=== PATIENT | male | born 1970 | race Caucasian/White ===

== ENCOUNTER 2023-04-17 12:29 | Emergency (ER) | payer OTHER ==
[~2023-04-17] VITALS: Ht 177.8 cm; Wt 90.7 kg
[2023-04-17 12:30] VITALS: BP_SYST 123; PULSE 81; RESP 19; TEMP 98.3; O2SAT 99
[2023-04-17] MEDS ORDERED: IBUP-1969 PO (13:13)
[2023-04-17] MEDS ORDERED: TRAM50TA2 PO ×2 (13:13→18:49)
[2023-04-17] MEDS ORDERED: KETOROLAC TROMETHAMINE 60 MG/2 ML VIAL IM ONE (13:15)
[2023-04-17 14:50] VITALS: BP_SYST 123; PULSE 81; RESP 19; TEMP 98.3; O2SAT 99
== END 2023-04-17 14:50 | disposition home or self-care (01) ==
LOC: SED 12:29
DX: R51.9 Headache, unspecified (principal); Z91.041 Radiographic dye allergy status; Z79.899 Other long term (current) drug therapy
CPT/HCPCS: 99285; 70450; 76376; 96372; J1885

== ENCOUNTER 2023-05-18 17:58 | Emergency (ER) | payer OTHER ==
[~2023-05-18] VITALS: Ht 177.8 cm; Wt 88.5 kg
[~2023-05-18 17:58] MED LIST: IBUP-1969 PO; TRAM50TA2 PO
[2023-05-18 18:14] VITALS: BP_SYST 123; PULSE 113; RESP 20; TEMP 98.4; O2SAT 98
[2023-05-18] MEDS ORDERED: DIPHTH,PERTUSS(ACELL),TET VAC 0.5 ML VIAL (Tdap) I.M. ONE (18:45)
[2023-05-18] MEDS ORDERED: AMOX-423 PO (19:03)
[2023-05-18] MEDS ORDERED: NABU-140 PO (19:03)
[2023-05-18 19:24] VITALS: BP_SYST 123; PULSE 113; RESP 20; TEMP 98.4; O2SAT 98
== END 2023-05-18 19:24 | disposition home or self-care (01) ==
LOC: SED 17:58
DX: S61.431A Puncture wound without foreign body of right hand, initial encounter (principal); Z91.041 Radiographic dye allergy status; Z79.899 Other long term (current) drug therapy; W54.0XXA Bitten by dog, initial encounter; Y93.89 Activity, other specified; Y92.89 Other specified places as the place of occurrence of the external cause; Y99.8 Other external cause status
CPT/HCPCS: 90715; 99283